=== PATIENT | female | born 1980 | race Caucasian/White ===

== ENCOUNTER → 2018-03-29 | Emergency (ER) | payer OTHER ==
[~2018-03-29] VITALS: Ht 170.2 cm; Wt 72.6 kg
[~2018-03-29] MED LIST: AMIT50TA3 PO; ASPIRIN 81 MG CHEW (CHILDREN'S ASA) PO ONE; IBUP-1780 PO
[2018-03-29 19:31] LABS: BASOPHILS % (AUTO) 0 % (0-10); EOSINOPHILS # (AUTO) 0.2 10^3/uL (0.0-0.3); EOSINOPHILS % (AUTO) 2 % (0-10); HEMATOCRIT 39 % (35-52); HEMOGLOBIN 13.9 G/DL (11.5-16.0); LYMPHOCYTES # (AUTO) 2.3 X 10^3 (1.0-4.0); LYMPHOCYTES % (AUTO) 26 % (12-44); MEAN CORPUSCULAR HEMOGLOBIN 30 PG (25-34); MEAN CORPUSCULAR HGB CONC 35 G/DL (32-36); MEAN CORPUSCULAR VOLUME 84 FL (80-99); MONOCYTES # (AUTO) 0.5 X 10^3 (0.0-1.0); MONOCYTES % (AUTO) 6 % (0-12); NEUTROPHILS # (AUTO) 6.1 X 10^3 (1.8-7.8); NEUTROPHILS % (AUTO) 66 % (42-75); PLATELET COUNT 262 10^3/uL (130-400); RED CELL DISTRIBUTION WIDTH 12.5 % (10.0-14.5); WHITE BLOOD COUNT 9.1 10^3/uL (4.3-11.0)
--- NOTE | 2018-03-29 19:40 | Diagnostic Imaging Report ---
INDICATION: Left arm numbness. FINDINGS: There is no failure, effusion, pneumothorax, or infiltrate. No free air beneath the diaphragms. Cardiomediastinal and hilar contours are normal. IMPRESSION: Normal frontal chest. Dictated by: Dictated on workstation # [id number]
[2018-03-29 19:42] LABS: PROTHROMBIN TIME PATIENT 12.9 SEC (12.2-14.7)
[2018-03-29 19:51] LABS: ALANINE AMINOTRANSFERASE 42 U/L (0-55); ALBUMIN 4.2 GM/DL (3.2-4.5); ALKALINE PHOSPHATASE 72 U/L (40-136); BILIRUBIN,TOTAL 0.2 MG/DL (0.1-1.0); BUN/CREATININE RATIO 12; CALCIUM 9.1 MG/DL (8.5-10.1); CARBON DIOXIDE 22 MMOL/L (21-32); CHLORIDE 109 MMOL/L (98-107); CREATININE SERUM 0.91 MG/DL (0.60-1.30); GFR ESTIMATED > 60; GLUCOSE 95 MG/DL (70-105); LIPASE 57 U/L (8-78); MAGNESIUM 2.4 MG/DL (1.8-2.4); POTASSIUM 3.3 MMOL/L (3.6-5.0); SODIUM 140 MMOL/L (135-145)
[2018-03-29 19:57] LABS: MYOGLOBIN SERUM 17.2 NG/ML (10.0-92.0)
--- NOTE | 2018-03-29 21:15 | ED Chest Pain ---
General Chief Complaint: Chest Pain Stated Complaint: NUMBESS LEFT SIDE,FAST HEART RATE Nursing Triage Note: PATIENT IS AMBULATORY TO ER WITH COMPLAINING OF LEFT ARM TINGLING AND CHEST PRESSURE. PATIENT ALSO COMPLAINING OF FEELING THAT HER HEART IS RACING. PATIENT STATES SHE WOKE UP WITH SAME SYMPTOMS THIS MORNING AROUND 04:30 AM AND WENT TO [facility] ER WHERE SHE HAD A WORKUP THAT INCLUDED A CT OF HEAD/ BRAIN. SHE STATES SHE WAS REFERRED TO A NEUROLOGIST TODAY AND WAS TOLD IT WAS A "PROBLEM WITH HER NECK". SHE STATES SHE SAW THE NEUROLOGIST THIS AFTERNOON. THIS EVENING AROUND 18:00 THE TINGLING AND CHEST PRESSURE RETURNED SO SHE CAME TO THIS ER. Nursing Sepsis Screen: No Definite Risk Source: patient Exam Limitations: no limitations History of Present Illness Date Seen by Provider: Mar 29, 2018 Time Seen by Provider: 19:20 Allergies and Home Medications Allergies Coded Allergies: No Known Drug Allergies (Unverified , 03/29/18) Home Medications Amitriptyline HCl 50 Mg Tablet, 50 MG PO DAILY, (Reported) Ibuprofen 800 Mg Tablet, 800 MG PO Q8H, (Reported) Past [id number] Hx Patient Social History Alcohol Use: Occasionally Uses Alcohol Beverage of Choice: Wine Recreational Drug Use: No Smoking Status: Never a Smoker 2nd Hand Smoke Exposure: No Recent Foreign Travel: No Contact w/Someone Who Travel: No Recent Infectious Disease Expo: No Recent Hopitalizations: No Physical Abuse: No Sexual Abuse: No Mistreated: No Fear: No Immunizations Up To Date PED Vaccines UTD: Yes Seasonal Allergies Seasonal Allergies: No Past Medical History Surgeries: Yes (KNEE SURGERY X 2, BREAST AUGMENTATION) Breast, Orthopedic, Tubal Ligation Respiratory: No Cardiac: No Neurological: No : No Last Menstrual Period: Mar 29, 2018 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 oz. [id number]; BMI Method:Stated Progress/Results/Core Measures Results/Orders Lab Results Laboratory Tests Test 03/29/18 19:20 03/29/18 21:06 Range/Units White Blood Count 9.1 4.3-11.0 10^3/uL Red Blood Count 4.70 4.35-5.85 10^6/uL Hemoglobin 13.9 11.5-16.0 G/DL Hematocrit 39 35-52 % Mean Corpuscular Volume 84 80-99 FL Mean Corpuscular Hemoglobin 30 25-34 PG Mean Corpuscular Hemoglobin Concent 35 32-36 G/DL Red Cell Distribution Width 12.5 10.0-14.5 % Platelet Count 262 130-400 10^3/uL Mean Platelet Volume 10.0 7.4-10.4 FL Neutrophils (%) (Auto) 66 42-75 % Lymphocytes (%) (Auto) 26 12-44 % Monocytes (%) (Auto) 6 0-12 % Eosinophils (%) (Auto) 2 0-10 % Basophils (%) (Auto) 0 0-10 % Neutrophils # (Auto) 6.1 1.8-7.8 X 10^3 Lymphocytes # (Auto) 2.3 1.0-4.0 X 10^3 Monocytes # (Auto) 0.5 0.0-1.0 X 10^3 Eosinophils # (Auto) 0.2 0.0-0.3 10^3/uL Basophils # (Auto) 0.0 0.0-0.1 10^3/uL Prothrombin Time 12.9 12.2-14.7 SEC INR Comment 1.0 0.8-1.4 Activated Partial Thromboplast Time 28 24-35 SEC Sodium Level 140 135-145 MMOL/L Potassium Level 3.3 L 3.6-5.0 MMOL/L Chloride Level 109 H 98-107 MMOL/L Carbon Dioxide Level 22 21-32 MMOL/L Anion Gap 9 5-14 MMOL/L Blood Urea Nitrogen 11 7-18 MG/DL Creatinine 0.91 0.60-1.30 MG/DL Estimat Glomerular Filtration Rate > 60 BUN/Creatinine Ratio 12 Glucose Level 95 70-105 MG/DL Calcium Level 9.1 8.5-10.1 MG/DL Corrected Calcium 8.9 8.5-10.1 MG/DL Magnesium Level 2.4 1.8-2.4 MG/DL Total Bilirubin 0.2 0.1-1.0 MG/DL Aspartate Amino Transf (AST/SGOT) 36 H 5-34 U/L Alanine Aminotransferase (ALT/SGPT) 42 0-55 U/L Alkaline Phosphatase 72 40-136 U/L Myoglobin 17.2 10.0-92.0 NG/ML Troponin I < 0.028 < 0.028 <0.028 NG/ML Total Protein 7.0 6.4-8.2 GM/DL Albumin 4.2 3.2-4.5 GM/DL Lipase 57 8-78 U/L My Orders Orders - SAMIR XIONG Cbc With Automated Diff (03/29/18:) Magnesium (03/29/18:) Chest 1 View, Ap/Pa Only (03/29/18:) Ekg Tracing (03/29/18:) Cardiac Profile 1 (03/29/18:) Comprehensive Metabolic Panel (03/29/18:) Myoglobin Serum (03/29/18:) Protime With Inr (03/29/18:) Partial Thromboplastin Time (03/29/18:) O2 (03/29/18:) Monitor-Rhythm Ecg Trace Only (03/29/18:) Lipid Panel (03/30/18 06:00) Saline Lock/Iv-Start (03/29/18:) Lipase (03/29/18:) Aspirin Chewable Tablet (Baby Aspirin Ch (03/29/18 20:00) Troponin I (03/29/18 20:59) Medications Given in ED Current Medications Medications Dose Ordered Sig/Sofia Route Start Time Stop Time Status Last Admin Dose Admin Aspirin 324 mg ONCE ONCE PO 03/29/18 20:00 03/29/18 20:01 DC 03/29/18 20:10 324 MG Vital Signs/I&O 03/29/18 03/29/18 03/29/18 19:04 19:06 19:12 Temp 98.4 Pulse 90 Resp 14 B/P (MAP) 157/106 (123) O2 Delivery Room Air Room Air FiO2 97 Blood Pressure Mean: 123 Departure Impression Primary Impression: Chest pain Disposition: HOME, SELF-CARE Condition: Stable/Unchanged Departure-Patient Inst. Decision time for Depature: 22:00 Referrals: NO,LOCAL PHYSICIAN (PCP/Family) Primary Care Physician Patient Instructions: Chest Pain That Is Not Caused by the Heart (DC) Add. Discharge Instructions: You may use ibuprofen and Tylenol as directed by the bottle for pain relief. Follow-up with your primary care provider within 1 week for recheck. Return back to the emergency room for worsening symptoms or concerns as needed. All discharge instructions reviewed with patient and/or family. Voiced understanding. SAMIR XIONG Mar 29, 2018 21:15
[2018-03-29 22:13] VITALS: BP 131/90
== END | disposition home or self-care (01) ==
LOC: ER 19:04
DX: R07.89 Other chest pain (principal); Z98.51 Tubal ligation status; Z98.890 Other specified postprocedural states
CPT/HCPCS: 36415; 71045; 80053; 83690; 83735; 83874; 84484; 85025; 85610; 85730; 93041